=== PATIENT | female | born 1980 | race Caucasian/White ===

== ENCOUNTER 2019-06-10 07:29 | Emergency (ER) | payer MEDICAID ==
[~2019-06-10] VITALS: Ht 152.4 cm; Wt 73.0 kg
[2019-06-10 07:48] VITALS: BP 116/46; Ht 152.4 cm; Wt 73.0 kg
[2019-06-10 08:37] LABS: BASOPHIL % 0.4 % (0-2); PLATELET COUNT 259 x10^3mcL (130-400); RED CELL DISTRIBUTION WIDTH 12.6 % (11.5-14.5)
[2019-06-10 08:41] LABS: ALBUMIN 4.1 g/dL (3.4-5.0); BILIRUBIN TOTAL 0.4 mg/dL (0.20-1.00); CALCIUM 8.4 mg/dL (8.5-10.1); CARBON DIOXIDE 25.2 mmol/L (21-32); CREATININE SERUM 1.1 mg/dL (0.6-1.0); POTASSIUM SERUM 4.1 mmol/L (3.5-5.1)
[2019-06-10 08:42] LABS: TOTAL PROTEIN, SERUM 9.2 g/dL (6.4-8.2)
[2019-06-12 04:06] LABS: RAPID PLASMA REAGIN Non Reactive (Non Reactive)
== END 2019-06-10 10:45 | disposition home or self-care (01) ==
LOC: ED 07:29
PROVIDERS: Emergency Medicine
DX: R10.30 Lower abdominal pain, unspecified (principal); Z98.890 Other specified postprocedural states
CPT/HCPCS: 36415; 87491; 87591; J0696; J1885

== ENCOUNTER 2019-06-20 18:07 | Emergency (ER) | payer MEDICAID ==
[~2019-06-20] VITALS: Ht 154.9 cm; Wt 75.3 kg
[2019-06-20 18:59] VITALS: Ht 154.9 cm; Wt 75.3 kg
[2019-06-20 21:23] LABS: BASOPHIL % 0.6 % (0-2); PLATELET COUNT 253 x10^3mcL (130-400); RED CELL DISTRIBUTION WIDTH 12.5 % (11.5-14.5)
[2019-06-20 21:28] LABS: CALCIUM 8.2 mg/dL (8.5-10.1); CARBON DIOXIDE 27.8 mmol/L (21-32); CHLORIDE SERUM 106 mmol/L (98-107); CREATININE SERUM 0.9 mg/dL (0.6-1.0); GFR1 > 60 mL/min; GLUCOSE SERUM 101 mg/dL (74-106); POTASSIUM SERUM 4.2 mmol/L (3.5-5.1); SODIUM SERUM 141 mmol/L (136-145)
[2019-06-20 21:35] LABS: ALBUMIN 3.5 g/dL (3.4-5.0); ALKALINE PHOSPHATASE 65 U/L (46-116); ALT/SGPT 31 U/L (14-59); AST/SGOT 20 U/L (15-37); BILIRUBIN TOTAL 0.22 mg/dL (0.20-1.00); CHOLESTEROL 150 mg/dL (<200); TOTAL PROTEIN, SERUM 7.8 g/dL (6.4-8.2)
[2019-06-20 21:36] LABS: HDL CHOLESTEROL 25 mg/dL (40-60); TRIGLYCERIDES 308 mg/dL (<150)
[2019-06-20 22:24] LABS: microscopic required? NO
[2019-06-20 22:41] LABS: UA SPECIFIC GRAVITY 1.025 (1.005-1.035); urine erythrocyte NEGATIVE (NEGATIVE)
[2019-06-20 23:15] VITALS: BP 112/59
== END 2019-06-21 01:20 | disposition home or self-care (01) ==
LOC: ED 18:07
PROVIDERS: Specialist
DX: D25.9 Leiomyoma of uterus, unspecified (principal); N76.0 Acute vaginitis; Z98.890 Other specified postprocedural states
CPT/HCPCS: 87491; 87591; J1885; J7030

== ENCOUNTER 2020-01-03 16:45 | Emergency (ER) | payer MEDICAID ==
[~2020-01-03] VITALS: Ht 154.9 cm; Wt 78.5 kg
[2020-01-03 17:23] VITALS: BP 134/62; Ht 154.9 cm; Wt 78.5 kg
== END 2020-01-03 17:46 | disposition home or self-care (01) ==
LOC: ED 16:45
DX: J02.9 Acute pharyngitis, unspecified (principal)